=== PATIENT | female | born 1945 | race Caucasian/White ===

== ENCOUNTER 2020-02-27 11:28 | Emergency (ER) | payer MEDICARE, OTHER ==
--- NOTE | 2020-02-27 11:48 | ED Physician Documentation ---
PD HPI NVD - Stated complaint Stated Complaint: N/V - History obtained from History obtained from: Patient - History of Present Illness Timing - onset: How many hours ago (About 2-1/2 hours ago, at 830 this morning, the patient while doing simple activity in the kitchen had an onset of nausea lightheadedness and sweating. Her states she broke out in a cold sweat. There were no focal deficits. She denied chest pain or headache. Symptoms lasted 20 or 30 mins.) Timing - details: Abrupt onset, Still present (She feels improved generally without any chest pain or headache but still nauseated and feeling generally weak. She is seeming forgetful of events from this morning but does not have any focal neuro deficits.) Associated symptoms: Near syncope / syncope. No: Fever, Abdominal pain, Chest pain, Loss of appetite Contributing factors: No: Sick contact, Bad food, Travel, Diabetes Similar symptoms before: Has not had sx before Recently seen: Not recently seen Review of Systems Constitutional: denies: Fever, Chills Nose: denies: Rhinorrhea / runny nose, Congestion Throat: denies: Sore throat Cardiac: reports: Other (feeling of lightheaded abruptly this morning). denies: Chest pain / pressure, Palpitations, Pedal edema, Calf pain Respiratory: denies: Cough GI: reports: Nausea. denies: Abdominal Pain, Vomiting, Diarrhea Neurologic: reports: Generalized weakness, Near syncope. denies: Focal weakness, Numbness, Syncope, Confused (but forgetful of events from this morning.), Altered mental status, Headache PD PAST MEDICAL HISTORY - Past Medical History Cardiovascular: None, Hypertension Respiratory: None Neuro: None Endocrine/Autoimmune: None GI: None - Allergies Allergies/Adverse Reactions: Allergies Allergy/AdvReac Type Severity Reaction Status Date / Time No Known Drug Allergies Allergy Verified 02/27/20 15:13 - Living Situation Living Situation: reports: With spouse/s.o. Living Arrangement: reports: At home - Social History Does the pt smoke?: No Does the pt drink ETOH?: No Does the pt have substance abuse?: No - Family History Family history: reports: CAD, CVA PD ED PE NORMAL - Vitals Vital signs reviewed: Yes - General General: Alert and oriented X 3, No acute distress, Well developed/nourished, Other (Conversant alert and interacts well. 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 No: ST elevation c/w ischemia, ST depression Compare to prior EKG: Old EKG unavailable - Labs Labs: Laboratory Tests 02/27/20 02/27/20 02/27/20 12:04 12:30 12:30 WBC 14.0 H RBC 4.65 Hgb 14.7 Hct 43.4 MCV 93.3 MCH 31.6 H MCHC 33.9 RDW 12.0 Plt Count 163 MPV 10.3 Neut # (Auto) 12.0 H Lymph # (Auto) 1.3 L [place] # (Auto) 0.5 Eos # (Auto) 0.0 Baso # (Auto) 0.0 Absolute Nucleated RBC 0.00 Nucleated RBC % 0.0 ESR Sodium 141 Potassium 3.5 Chloride 99 L Carbon Dioxide 28 Anion Gap 14.0 H BUN 11 Creatinine 0.8 Estimated GFR (MDRD) 70 L Glucose 144 H POC Whole Bld Glucose 146 H Calcium 9.6 Magnesium 2.1 Total Bilirubin 0.8 AST 54 H ALT 24 Alkaline Phosphatase 62 Troponin I High Sens Total Protein 7.9 Albumin 4.8 Globulin 3.1 Albumin/Globulin Ratio 1.5 Lipase 56 H 02/27/20 02/27/20 02/27/20 12:30 12:30 14:04 WBC RBC Hgb Hct MCV MCH MCHC RDW Plt Count MPV Neut # (Auto) Lymph # (Auto) [place] # (Auto) Eos # (Auto) Baso # (Auto) Absolute Nucleated RBC Nucleated RBC % ESR 14 Sodium Potassium Chloride Carbon Dioxide Anion Gap BUN Creatinine Estimated GFR (MDRD) Glucose POC Whole Bld Glucose Calcium Magnesium Total Bilirubin AST ALT Alkaline Phosphatase Troponin I High Sens 68.9 H* 129.2 H* Total Protein Albumin Globulin Albumin/Globulin Ratio Lipase PD MEDICAL DECISION MAKING - ED course Complexity details: reviewed results (Her EKG is without any acute ischemia. Her initial troponin is elevated at 60 and the repeat is almost doubled at 129. Concerning for an acute ACS.), re-evaluated patient (The patient is updated on the findings. She does have a tobacco stemmer in [facility]. The [facility] hospital states a are likely to have beds available after several hours. Given that she does have a tobacco stemmer there, it seems reasonable to try to have disposition to Prov), considered differential (Onset of nausea diaphoresis and lightheadedness even without chest pain would be co ncerning for cardiovascular event. We will get EKG and troponin and blood test. She is forgetful of events from this morning but no focal deficits. This does not sound like cerebrovascular.), d/w patient, d/w internet marketing consultant (Talked with hospitalist at [facility] who accepts transfer the patient for further heart evaluation. Limitation of our facility is no availability of stress testing or echo for at least 3 days.) Departure - Departure Disposition: 02 Transfer Acute Care Hosp Clinical Impression: Near syncope, Elevated troponin, Transient amnesia Condition: Stable
[2020-02-27] MEDS ORDERED: ONDANSETRON 4 MG/2 ML VIAL IVP STA (12:15)
[2020-02-27] MEDS ORDERED: SODIUM CHLORIDE 0.9% 1,000 ML IV STA (12:15)
[2020-02-27 12:45] LABS: BASOPHILS % (AUTO) 0.3 %; EOSINOPHILS % (AUTO) 0.1 %; HGB - HEMOGLOBIN 14.7 g/dL (12.0-16.0); LYMPHOCYTES # (AUTO) 1.3 10^3/uL (1.5-3.5); LYMPHOCYTES % (AUTO) 9.4 %; MEAN CORPUSCULAR HEMOGLOBIN 31.6 pg (27.0-31.0); MEAN CORPUSCULAR HGB CONC 33.9 g/dL (32.0-36.0); MEAN CORPUSCULAR VOLUME 93.3 fL (81.0-99.0); MEAN PLATELET VOLUME 10.3 fL (7.9-10.8); MONOCYTES # (AUTO) 0.5 10^3/uL (0.0-1.0); MONOCYTES % (AUTO) 3.7 %; NEUTROPHILS % (AUTO) 85.6 %; PLT - PLATELET COUNT 163 10^3/uL (130-450); RED BLOOD COUNT 4.65 10^6/uL (4.20-5.40)
--- NOTE | 2020-02-27 12:57 | CT Report ---
PROCEDURE: HEAD WO INDICATIONS: onset memory deficit this morning TECHNIQUE: Noncontrast 4.5 mm thick angled axial sections acquired from the foramen magnum to the vertex. For r adiation dose reduction, the following was used: automated exposure control, adjustment of mA and/or kV according to patient size. COMPARISON: None. FINDINGS: Image quality: Excellent. CSF spaces: Basal cisterns are patent. No extra-axial fluid collections. Ventricles are normal in size and shape. Brain: No midline shift. No intracranial masses or hemorrhage. [place]-white matter interface is norm al. Brain parenchymal volume loss and chronic small vessel ischemic change is seen. Skull and face: Calvarium and visualized facial bones are intact, without suspicious lesions. Sinuses: Visualized sinuses and mastoids are clear. IMPRESSION: Unremarkable intracranial study for age, without an imaging explanation found for the patient's prese nting symptoms. If there is strong clinical concern for a stroke, please consider a dedicated brain MRI for further e valuation (assuming that there is no contraindication to MRI). Reviewed by: Tawanda Givens MD on 02/27/2020 11:56 AM OVIDIO Approved by: Tawanda Givens MD on 02/27/2020 11:56 AM OVIDIO Station ID: [id number]
[2020-02-27 12:58] LABS: ALBUMIN 4.8 g/dL (3.2-5.5); ALBUMIN/GLOBULIN RATIO 1.5 (1.0-2.2); BILIRUBIN,TOTAL 0.8 mg/dL (0.2-1.0); CALCIUM 9.6 mg/dL (8.5-10.3); CREATININE 0.8 mg/dL (0.4-1.0); MAGNESIUM 2.1 mg/dL (1.7-2.8); TOTAL PROTEIN 7.9 g/dL (6.7-8.2)
[2020-02-27] MEDS ORDERED: CLOPIDOGREL 75 MG TABLET PO STA (15:09)
[2020-02-27] MEDS ORDERED: ASPIRIN CHEW 81 MG TABLET PO STA (15:09)
[2020-02-27] MEDS ORDERED: HEPARIN 25,000 UNITS/500 ML PREMIX IV STA (15:11)
[2020-02-27 17:38] VITALS: BP 144/81
== END 2020-02-27 17:45 | disposition short-term general hospital (02) ==
LOC: ED 11:28
DX: R55 Syncope and collapse (principal); G45.4 Transient global amnesia; R79.89 Other specified abnormal findings of blood chemistry; I10 Essential (primary) hypertension
CPT/HCPCS: 36415; 70450; 80053; 83690; 83735; 84484; 85025; 85651; 93005; 96361; 96374; 96375; 96376; 99284; 99285; A9270

== ENCOUNTER 2020-02-27 18:00 | Outpatient (CLI) | payer MEDICARE, OTHER | END 2020-02-27 18:01 | disposition short-term general hospital (02) | LOC: EMS 18:00 | PROVIDERS: ATTEND Surgery | DX: R41.3 Other amnesia (principal); R42 Dizziness and giddiness; R61 Generalized hyperhidrosis; R11.2 Nausea with vomiting, unspecified | CPT/HCPCS: A0425; A0426 ==

== ENCOUNTER 2020-03-15 22:21 | Emergency (ER) | payer MEDICARE, OTHER ==
--- NOTE | 2020-03-15 22:50 | ED Physician Documentation ---
History of Present Illness - Stated complaint Stated Complaint: UPSET STOMACH/SHAKY - Chief complaint Chief Complaint: Abd Pain - History obtained from History obtained from: Patient - History of Present Illness Timing: Enter time (21:00) Pain level max: 0 Pain level now: 0 Improved by: nothing Worsened by: no exacerbating factors - Additonal information Additional information: patient was recently discharged from [facility] after inpatient stay for possible NSTEMI (normal EKG but abnormal high sensitivity troponins in this ED prior to being transferred). Patient says she was told she had a "small heart attack" (per patient), although she is scheduled to have a stress test soon. She says she was also told she had several small strokes, although by her description it sounds like these might have been incidental findings on imaging studies rather than acute/symptomatic. Tonight, approximately 9 PM , patient felt anxious, tremulous, and burning epigastric discomfort although she says this was not summer abdominal pain. She has some difficulty in describing her symptoms to me, but her chief concern was that she felt that some of her symptoms tonight were among those she was told to watch for after being discharged from [place]. Review of Systems Constitutional: reports: Myalgias. denies: Fever, Chills, Fatigue, Sweats Cardiac: reports: Reviewed and negative Respiratory: reports: Reviewed and negative GI: denies: Abdominal Pain (patient says she felt "upset stomach" (per patient), which she can best describe as a mild burning discomfort), Nausea, Vomiting Musculoskeletal: reports: Reviewed and negative Neurologic: denies: Generalized weakness, Focal weakness, Numbness, Difficulty speaking, Near syncope, Confused, Altered mental status, Headache PD PAST MEDICAL HISTORY - Past Medical History Cardiovascular: None, Hypertension Respiratory: None Neuro: None Endocrine/Autoimmune: None GI: None - Past Surgical History 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 - Allergies Allergies/Adverse Reactions: Allergies Allergy/AdvReac Type Severity Reaction Status Date / Time No Known Drug Allergies Allergy Verified 03/15/20 22:25 - Social History Does the pt smoke?: No Smoking Status: Never smoker Does the pt drink ETOH?: No Does the pt have substance abuse?: No - Immunizations Immunizations are current?: Yes - POLST Patient has POLST: No PD ED PE NORMAL - Vitals Vital signs reviewed: Yes - General General: Alert and oriented X 3, No acute distress, Well developed/nourished - HEENT HEENT: Moist mucous membranes - Neck Neck: Supple, no meningeal sign - Cardiac Cardiac: RRR, No murmur, No gallop, No rub - Respiratory Respiratory: No respiratory distress, Clear bilaterally - Abdomen Abdomen: Normal bowel sounds, Soft, Non tender, Non distended - Back Back: No CVA TTP - Derm Derm: Normal color, Warm and dry - Extremities Extremities: No edema - Neuro Neuro: Alert and oriented X 3, laborer shaft sinking 2-12 intact Results - Vitals Vitals: Vital Signs - 24 hr 03/15/20 03/15/20 03/16/20 22:25 23:30 00:19 Temperature 36.5 C 36.6 C Heart Rate 88 75 70 Respiratory 16 15 13 Rate Blood Pressure 152/84 H 124/74 133/88 H O2 Saturation 97 97 96 Oxygen O2 Source Room air - EKG (time done) No standard instances Rate: Rate (enter#) (87) Rhythm: NSR [place]: Normal Intervals: Normal [place] QRS: Normal Ischemia: Normal ST segments - Labs Labs: Laboratory Tests 03/15/20 03/15/20 03/15/20 22:50 22:50 22:50 WBC 6.9 RBC 4.29 Hgb 13.6 Hct 39.6 MCV 92.3 MCH 31.7 H MCHC 34.3 RDW 12.2 Plt Count 238 MPV 9.7 Neut # (Auto) Not Reportable Lymph # (Auto) Not Reportable [place] # (Auto) Not Reportable Eos # (Auto) Not Reportable Baso # (Auto) Not Reportable Absolute Nucleated RBC Not Reportable Total Counted 100 Band Neuts % (Manual) 0 Abnorm Lymph % (Manual) 0 Nucleated RBC % Not Reportable Neutrophils # (Manual) 4.3 Lymphocytes # (Manual) 1.9 Monocytes # (Manual) 0.5 Eosinophils # (Manual) 0.1 Basophils # (Manual) 0.0 Differential Comment MANUAL DIFFERENTIAL Platelet Estimate NORMAL (130-450,000) RBC Morph Micro Appear NORMAL APPEARANCE PT 12.5 INR 1.1 APTT 30.9 Sodium 135 Potassium 3.8 Chloride 103 Carbon Dioxide 23 Anion Gap 9.0 BUN 15 Creatinine 0.6 Estimated GFR (MDRD) 97 Glucose 132 H Calcium 9.1 Total Bilirubin 0.6 AST 46 H ALT 27 Alkaline Phosphatase 62 Troponin I High Sens Total Protein 7.0 Albumin 4.3 Globulin 2.7 Albumin/Globulin Ratio 1.6 Lipase 119 H Urine Color Urine Clarity Urine pH Ur Specific [place] Urine Protein Urine Glucose (UA) Urine Ketones Urine Occult Blood Urine Nitrite Urine Bilirubin Urine Urobilinogen Ur Leukocyte Esterase Ur Microscopic Review Urine Culture Comments 03/15/20 03/15/20 23:23 23:25 WBC RBC Hgb Hct MCV MCH MCHC RDW Plt Count MPV Neut # (Auto) Lymph # (Auto) [place] # (Auto) Eos # (Auto) Baso # (Auto) Absolute Nucleated RBC Total Counted Band Neuts % (Manual) Abnorm Lymph % (Manual) Nucleated RBC % Neutrophils # (Manual) Lymphocytes # (Manual) Monocytes # (Manual) Eosinophils # (Manual) Basophils # (Manual) Differential Comment Platelet Estimate RBC Morph Micro Appear PT INR APTT Sodium Potassium Chloride Carbon Dioxide Anion Gap BUN Creatinine Estimated GFR (MDRD) Glucose Calcium Total Bilirubin AST ALT Alkaline Phosphatase Troponin I High Sens 11.7 Total Protein Albumin Globulin Albumin/Globulin Ratio Lipase Urine Color YELLOW Urine Clarity CLEAR Urine pH 6.0 Ur Specific [place] <=1.005 Urine Protein NEGATIVE Urine Glucose (UA) NEGATIVE Urine Ketones NEGATIVE Urine Occult Blood NEGATIVE Urine Nitrite NEGATIVE Urine Bilirubin NEGATIVE Urine Urobilinogen 0.2 (NORMAL) Ur Leukocyte Esterase NEGATIVE Ur Microscopic Review NOT INDICATED Urine Culture Comments NOT INDICATED PD MEDICAL DECISION MAKING - ED course Complexity details: reviewed results, re-evaluated patient, considered differential, d/w patient Departure - Departure Disposition: 01 Home, Self Care Clinical Impression: Dyspepsia Condition: Good Instructions: ED GERD, ED PUD Vs Gastritis Follow-Up: Serafin Ball MD [Primary Care Provider] - Discharge Date/Time: 03/16/20 00:35
[2020-03-15 23:05] LABS: BASOPHILS % (AUTO) 0.3 %; EOSINOPHILS % (AUTO) 3.5 %; HGB - HEMOGLOBIN 13.6 g/dL (12.0-16.0); LYMPHOCYTES % (AUTO) 27.5 %; MEAN CORPUSCULAR HEMOGLOBIN 31.7 pg (27.0-31.0); MEAN CORPUSCULAR HGB CONC 34.3 g/dL (32.0-36.0); MEAN CORPUSCULAR VOLUME 92.3 fL (81.0-99.0); MEAN PLATELET VOLUME 9.7 fL (7.9-10.8); MONOCYTES % (AUTO) 8.4 %; NEUTROPHILS % (AUTO) 59.9 %; PLT - PLATELET COUNT 238 10^3/uL (130-450); RED BLOOD COUNT 4.29 10^6/uL (4.20-5.40); RED CELL DISTRIBUTION WIDTH 12.2 % (12.0-15.0); WHITE BLOOD COUNT 6.9 x10^3/uL (4.8-10.8)
[2020-03-15 23:07] LABS: ABNORMAL LYMPHS % (MANUAL) 0 %; BAND NEUTROPHILS % (MANUAL) 0 %
[2020-03-15 23:10] LABS: INR 1.1 (0.8-1.2); PT - PROTHROMBIN TIME 12.5 secs (9.9-12.6)
[2020-03-15 23:12] LABS: ALBUMIN 4.3 g/dL (3.2-5.5); ALBUMIN/GLOBULIN RATIO 1.6 (1.0-2.2); BILIRUBIN,TOTAL 0.6 mg/dL (0.2-1.0); CALCIUM 9.1 mg/dL (8.5-10.3); CREATININE 0.6 mg/dL (0.4-1.0)
[2020-03-15 23:17] LABS: PARTIAL THROMBOPLASTIN TIME 30.9 secs (24.9-33.3)
[2020-03-15 23:26] LABS: DIFFERENTIAL COMMENT MANUAL DIFFERENTIAL; EOSINOPHILS # (MANUAL) 0.1 10^3/uL (0-0.7); LYMPHOCYTES # (MANUAL) 1.9 10^3/uL (1.5-3.5); LYMPHOCYTES % (MANUAL) 28 %; MONOCYTES # (MANUAL) 0.5 10^3/uL (0.0-1.0); PLATELET ESTIMATE, MANUAL NORMAL (130-450,000) (NORMAL); RBC MORPHOLOGY (MULTIPLE) NORMAL APPEARANCE (NORMAL)
[2020-03-15 23:49] LABS: BILIRUBIN,URINE NEGATIVE (NEGATIVE); GLUCOSE, URINE (UA) NEGATIVE (NEGATIVE); KETONES,URINE (UA) NEGATIVE (NEGATIVE); LEUKOCYTE ESTERASE, URINE NEGATIVE (NEGATIVE); NITRITE,URINE NEGATIVE (NEGATIVE); OCCULT BLOOD,URINE NEGATIVE (NEGATIVE); PROTEIN,URINE NEGATIVE (NEGATIVE); UROBILINOGEN,URINE 0.2 (NORMAL) E.U./dL (NORMAL)
[2020-03-15 23:51] LABS: CLARITY,URINE CLEAR (CLEAR)
[2020-03-16] MEDS ORDERED: MAG HYDROX/AL HYDROX/SIMETH 30 ML UDC PO STA (00:09)
[2020-03-16 00:21] VITALS: BP 133/88
== END 2020-03-16 00:35 | disposition home or self-care (01) ==
LOC: ED 22:21
DX: R10.13 Epigastric pain (principal)
CPT/HCPCS: 36415; 80053; 81003; 83690; 84484; 85025; 85610; 85730; 93005; 99283; 99284; A9270; 81001; 87086

== ENCOUNTER 2020-04-03 07:18 | Emergency (ER) | payer MEDICARE, OTHER ==
--- NOTE | 2020-04-03 08:10 | ED Physician Documentation ---
PD HPI FOCAL NEURO - Stated complaint Stated Complaint: CHILLS/NAUSEA - Chief complaint Chief Complaint: General - History obtained from History obtained from: Patient, Family - History of Present Illness Timing - onset: How many hours ago (1), Today Timing - duration: Hours (1) Timing - details: Abrupt onset (she states she awoke with feeling of lightheaded and poor memory (she could not remember why she was walking into the bathroom, and not remembering what she was supposed to be doing today or what she did yesterday). Had feeling of lightheaded as well. She took her BP and it was 98 systolic. HR 90s.) Severity of deficit: Moderate Weakness: No: Face, Arm, Leg Numbness: No: Face, Arm, Leg Associated symptoms: Nausea / vomiting (nausea and lightheaded. No headache nor chest pain.). No: Headache, Syncope, Fall, Head injury, Chest pain Contributing factors: negative: Vascular dz, Atrial fibrillation Baseline status: positive: A&OX3, ambulatory, indep Similar symptoms before: No diagnosis (had similar symptoms about a month ago and was transferred to [facility] from our ER for specialist eval due to elevated and rising troponin. She states had cardiac eval with ECHO and pharmacologic stress test. Neuro eval with CT-angio head and MRI brain. Dx "small OK" and possible TIA.) Recently seen: Clinic (Cardiology office and Rx for spironolactone stopped and changed to HCTZ, and was to do 24 hr urine collection on Apr 20.), Emergency Dept, Admitted (a month ago for similar) Review of Systems Constitutional: denies: Fever, Chills Nose: denies: Rhinorrhea / runny nose, Congestion Throat: denies: Sore throat Respiratory: denies: Cough GI: reports: Nausea. denies: Abdominal Pain, Vomiting, Diarrhea : denies: Dysuria Skin: denies: Rash, Lesions Neurologic: reports: Altered mental status (had lightheaded and short term memory deficit, but this has improved enroute/on arrival.). 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 - Present Medications Home Medications: Ambulatory Orders Medication Instructions Recorded Confirmed Albuterol Sulfate [Proair Hfa 1 - 2 puffs INH Q4HR PRN 04/03/20 04/03/20 Inhaler] Ascorbic Acid [Vitamin C] 0 mg PO DAILY 04/03/20 04/03/20 Aspirin [Adult Aspirin Regimen] 81 mg PO DAILY 04/03/20 04/03/20 Atorvastatin Calcium [Lipitor] 80 mg PO DAILY 04/03/20 04/03/20 Calcium Carbonate [Tums (Calcium 1,000 mg PO DAILY 04/03/20 04/03/20 Carbonate 500mg)] Calcium Carbonate/Vitamin D3 2 each PO BID 04/03/20 04/03/20 [Calcium 250-D Tablet] Cholecalciferol (Vitamin D3) 1,000 unit PO DAILY 04/03/20 04/03/20 [Vitamin D3] Cyanocobalamin (Vitamin B-12) 500 mcg PO DAILY 04/03/20 04/03/20 [Vitamin B-12] Flaxseed Oil 1 - 2 mg PO DAILY 04/03/20 04/03/20 Lactobacillus Acidophilus 1 each PO DAILY 04/03/20 04/03/20 [Probiotic Acidophilus] Loratadine [Claritin] 10 mg PO DAILY PRN 04/03/20 04/03/20 Metronidazole [Metrocream] 1 applic TP BID 04/03/20 04/03/20 [place]-3/Dha/Epa/Fish Oil [Fish Oil 1 each PO DAILY 04/03/20 04/03/20 1,000 mg Softgel] guaiFENesin [Guaifenesin] 400 mg PO BID PRN 04/03/20 04/03/20 hydroCHLOROthiazide 25 mg PO DAILY 04/03/20 04/03/20 [Hydrochlorothiazide] - Allergies Allergies/Adverse Reactions: Allergies Allergy/AdvReac Type Severity Reaction Status Date / Time No Known Drug Allergies Allergy Verified 04/03/20 07:37 - Social History Does the pt smoke?: No Smoking Status: Never smoker Does the pt drink ETOH?: No Does the pt have substance abuse?: No - Immunizations Immunizations are current?: Yes - POLST Patient has POLST: No PD ED PE NORMAL - Vitals Vital signs reviewed: Yes - General General: Alert and oriented X 3, No acute distress, Well developed/nourished - HEENT HEENT: Moist mucous membranes, Pharynx benign - Neck Neck: Supple, no meningeal sign, No adenopathy - Cardiac Cardiac: RRR, No murmur - Respiratory Respiratory: Clear bilaterally - Abdomen Abdomen: Soft, Non tender - Derm Derm: Normal color, Warm and dry - Extremities Extremities: No tenderness to palpate, Normal ROM s pain, No edema, No calf tenderness / cord - Neuro Neuro: Alert and oriented X 3, No motor deficit, Normal speech NIHSS - Level of Consciousness Level of consciousness: (0) Alert, Keenly responsive LOC Questions: (0) Answers both Q's correct LOC Commands: (0) Performs both correctly - Gaze Best Gaze: (0) Normal - Visual Visual: (0) No loss - Facial Palsy Facial Palsy: (0) Normal, symmetrical movement - Motor Arms (both separate) Motor Arm (right): (0) No drift Motor Arm (left): (0) No drift - Motor Legs (both separate) Motor Leg (right): (0) No drift Motor Leg (left): (0) No drift - Limb Ataxia Limb Ataxia: (0) Absent - Sensory Sensory: (0) Normal - Best Language Best Language: (0) No aphasia - Dysarthria Dysarthria: (0) Normal - Extinction and Inattention (formally neg Extinction and inattention: (0) No abnormality - Total Score/Results Total Score/Result: 0 Results - Vitals Vitals: Vital Signs - 24 hr 04/03/20 04/03/20 04/03/20 07:20 07:30 08:00 Temperature 36.6 C Heart Rate 89 79 78 Respiratory 14 13 10 L Rate Blood Pressure 137/92 H 124/73 115/79 O2 Saturation 98 99 98 04/03/20 04/03/20 09:30 10:51 Temperature 36.9 C Heart Rate 75 85 Respiratory 18 16 Rate Blood Pressure 120/81 H 109/71 O2 Saturation 97 95 Oxygen O2 Source Room air - Labs Labs: Laboratory Tests 04/03/20 04/03/20 04/03/20 08:31 08:31 08:31 WBC 6.3 RBC 4.45 Hgb 14.1 Hct 41.0 MCV 92.1 MCH 31.7 H MCHC 34.4 RDW 12.0 Plt Count 190 MPV 9.5 Neut # (Auto) 4.3 Lymph # (Auto) 1.3 L [place] # (Auto) 0.5 Eos # (Auto) 0.2 Baso # (Auto) 0.0 Absolute Nucleated RBC 0.00 Nucleated RBC % 0.0 ESR 44 H Sodium 140 Potassium 3.8 Chloride 99 L Carbon Dioxide 32 Anion Gap 9.0 BUN 17 Creatinine 0.8 Estimated GFR (MDRD) 70 L Glucose 118 H Calcium 9.3 Magnesium 2.2 Total Bilirubin 0.7 AST 55 H ALT 28 Alkaline Phosphatase 69 Total Creatine Kinase Troponin I High Sens Total Protein 7.3 Albumin 4.3 Globulin 3.0 Albumin/Globulin Ratio 1.4 Lipase 67 H 04/03/20 04/03/20 04/03/20 08:31 09:35 09:35 WBC RBC Hgb Hct MCV MCH MCHC RDW Plt Count MPV Neut # (Auto) Lymph # (Auto) [place] # (Auto) Eos # (Auto) Baso # (Auto) Absolute Nucleated RBC Nucleated RBC % ESR Sodium Potassium Chloride Carbon Dioxide Anion Gap BUN Creatinine Estimated GFR (MDRD) Glucose Calcium Magnesium Total Bilirubin AST ALT Alkaline Phosphatase Total Creatine Kinase 82 Troponin I High Sens 36.9 H* 34.4 H* Total Protein Albumin Globulin Albumin/Globulin Ratio Lipase PD MEDICAL DECISION MAKING - ED course Complexity details: reviewed results (normal labs with slightly Trop bump, and repeat did not increase. ), re-evaluated patient (still feeling okay. ), considered differential (her BP was low at time of symptoms, so I think it was low flow issue to brain and not focal ischemia. Jef in lieu of recent workup at [facility] for similar symptoms. Had BP med changed recently and on HCTZ the past week or so. ), d/w patient Departure - Departure Disposition: 01 Home, Self Care Clinical Impression: Acute memory impairment, Transient hypotension Condition: Stable Record reviewed to determine appropriate education?: Yes Follow-Up: Serafin Ball MD [Primary Care Provider] - Comments: I think your symptoms relate to your blood pressure being low and not adequate blood flow/perfusion to the brain. Regular hydration and foods. I would hold off on your diuretic blood pressure medicine for the next several days. Contact your kidney specialist and see if he intended you to start it already or waiting until after your urine collection test at the end of the month. See how your blood pressure is doing over the next several days and if it is holding normal or slightly high, then you could resume the diuretic at half dose instead. If it is normal or slightly low, then continue off of it until you see your primary care. Discharge Date/Time: 04/03/20 11:01
[2020-04-03 08:37] LABS: BASOPHILS % (AUTO) 0.2 %; EOSINOPHILS # (AUTO) 0.2 10^3/uL (0.0-0.7); EOSINOPHILS % (AUTO) 3.3 %; HGB - HEMOGLOBIN 14.1 g/dL (12.0-16.0); LYMPHOCYTES # (AUTO) 1.3 10^3/uL (1.5-3.5); LYMPHOCYTES % (AUTO) 20.2 %; MEAN CORPUSCULAR HEMOGLOBIN 31.7 pg (27.0-31.0); MEAN CORPUSCULAR HGB CONC 34.4 g/dL (32.0-36.0); MEAN CORPUSCULAR VOLUME 92.1 fL (81.0-99.0); MEAN PLATELET VOLUME 9.5 fL (7.9-10.8); MONOCYTES # (AUTO) 0.5 10^3/uL (0.0-1.0); MONOCYTES % (AUTO) 8.2 %; NEUTROPHILS # (AUTO) 4.3 10^3/uL (1.5-6.6); NEUTROPHILS % (AUTO) 67.6 %; PLT - PLATELET COUNT 190 10^3/uL (130-450); RED BLOOD COUNT 4.45 10^6/uL (4.20-5.40); WHITE BLOOD COUNT 6.3 x10^3/uL (4.8-10.8)
[2020-04-03 08:51] LABS: ALBUMIN 4.3 g/dL (3.2-5.5); ALBUMIN/GLOBULIN RATIO 1.4 (1.0-2.2); BILIRUBIN,TOTAL 0.7 mg/dL (0.2-1.0); CALCIUM 9.3 mg/dL (8.5-10.3); CREATININE 0.8 mg/dL (0.4-1.0); MAGNESIUM 2.2 mg/dL (1.7-2.8); TOTAL PROTEIN 7.3 g/dL (6.7-8.2)
[2020-04-03 10:52] VITALS: BP 109/71
== END 2020-04-03 11:01 | disposition home or self-care (01) ==
LOC: ED 07:18
DX: I95.9 Hypotension, unspecified (principal); R41.3 Other amnesia; R42 Dizziness and giddiness; I10 Essential (primary) hypertension; Z79.82 Long term (current) use of aspirin
CPT/HCPCS: 36415; 80053; 82550; 83690; 83735; 84484; 85025; 85651; 93005; 99284

== ENCOUNTER 2021-02-09 16:46 | Outpatient (CLI) | payer MEDICARE, OTHER | END 2021-02-09 16:47 | disposition home or self-care (01) | LOC: COV 16:46 | PROVIDERS: ATTEND Family Medicine | DX: Z20.822 Contact with and (suspected) exposure to COVID-19 (principal) ==

== ENCOUNTER 2021-03-10 22:33 | Emergency (ER) | payer MEDICARE, OTHER ==
--- NOTE | 2021-03-10 23:16 | ED Physician Documentation ---
PD HPI ABD PAIN - Stated complaint Stated Complaint: NAUSEA, CHILLS, ABD CRAMPS - Chief complaint Chief Complaint: Abd Pain - History obtained from History obtained from: Patient - History of Present Illness Timing - onset: Today (tonight) Timing - details: Abrupt onset, Now resolved, Waxing and waning Pain level max: 4 Pain level now: 0 Quality: Cramping Location: All over / everywhere Associated symptoms: Nausea. No: Fever, Vomiting, Diarrhea, Constipation - Additional information Additional information: episode of nausea without vomiting associated with abdominal cramping earlier tonight at home. 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 - Present Medications Home Medications: Ambulatory Orders Medication Instructions Recorded Confirmed Albuterol Sulfate [Proair Hfa 1 - 2 puffs INH Q4HR PRN 04/03/20 03/10/21 Inhaler] Ascorbic Acid [Vitamin C] 250 mg PO DAILY 04/03/20 03/10/21 Atorvastatin Calcium [Lipitor] 80 mg PO DAILY 04/03/20 03/10/21 Calcium Carbonate [Tums (Calcium 1,000 mg PO DAILY 04/03/20 03/10/21 Carbonate 500mg)] Calcium Carbonate/Vitamin D3 2 each PO BID 04/03/20 03/10/21 [Calcium 250-D Tablet] Cholecalciferol (Vitamin D3) 2,000 unit PO DAILY 04/03/20 03/10/21 [Vitamin D3] Cyanocobalamin (Vitamin B-12) 500 mcg PO DAILY 04/03/20 03/10/21 [Vitamin B-12] Lactobacillus Acidophilus 1 each PO DAILY 04/03/20 03/10/21 [Probiotic Acidophilus] Loratadine [Claritin] 10 mg PO DAILY PRN 04/03/20 03/10/21 guaiFENesin [Guaifenesin] 400 mg PO BID PRN 04/03/20 03/10/21 Rivaroxaban [Xarelto] 20 mg PO DAILY PM 03/10/21 03/10/21 - Allergies Allergies/Adverse Reactions: Allergies Allergy/AdvReac Type Severity Reaction Status Date / Time No Known Drug Allergies Allergy Verified 03/10/21 22:42 - Social History Does the pt smoke?: No Smoking Status: Never smoker Does the pt drink ETOH?: No Does the pt have substance abuse?: No - Immunizations Immunizations are current?: Yes - POLST Patient has POLST: No PD ED PE NORMAL - Vitals Vital signs reviewed: Yes - General General: Alert and oriented X 3, No acute distress, Well developed/nourished - Cardiac Cardiac: RRR, No murmur - Respiratory Respiratory: No respiratory distress, Clear bilaterally - Abdomen Abdomen: Normal bowel sounds, Soft, Non tender, Non distended Results - Vitals Vitals: Oxygen O2 Source Room air - Labs Labs: Laboratory Tests 03/10/21 03/10/21 23:45 23:45 WBC 9.4 RBC 4.45 Hgb 13.5 Hct 41.4 MCV 93.0 MCH 30.3 MCHC 32.6 RDW 12.7 Plt Count 179 MPV 9.8 Neut # (Auto) 8.1 H Lymph # (Auto) 0.7 L [place] # (Auto) 0.6 Eos # (Auto) 0.0 Baso # (Auto) 0.0 Absolute Nucleated RBC 0.00 Nucleated RBC % 0.0 Sodium 139 Potassium 3.9 Chloride 102 Carbon Dioxide 24 Anion Gap 13.0 BUN 18 Creatinine 0.7 Estimated GFR (MDRD) 81 L Glucose 138 H Calcium 9.1 Total Bilirubin 0.6 AST 80 H ALT 62 H Alkaline Phosphatase 69 Total Protein 7.1 Albumin 4.4 Globulin 2.7 Albumin/Globulin Ratio 1.6 Lipase 65 H - Rads (name of study) acute abd. series xrays Radiology: Prelim report reviewed, See rad report PD MEDICAL DECISION MAKING - ED course Complexity details: reviewed results, re-evaluated patient, considered marbin nunes, d/w patient ED course: nontender abdominal exam and symptoms have resolved by the time of this ED encounter. mildly elevated transaminases; patient says these have frequently been elevated, although ALT is previously normal on [facility] previous results. mildly elevated lipase noted as well. results d/w patient, given return precautions Departure - Departure Disposition: 01 Home, Self Care Clinical Impression: Abdominal pain Qualifiers: Abdominal location: generalized Qualified Code(s): R10.84 - Generalized abdominal pain Condition: Good Instructions: ED Abdominal Pain Unkn Cause Follow-Up: Serafin Ball MD [Primary Care Provider] - Discharge Date/Time: 03/11/21 03:20
[2021-03-10] MEDS ORDERED: ONDANSETRON ODT 4 MG TABLET TL STA (23:32)
[2021-03-10 23:53] LABS: BASOPHILS % (AUTO) 0.1 %; EOSINOPHILS % (AUTO) 0.3 %; HCT - HEMATOCRIT 41.4 % (37.0-47.0); HGB - HEMOGLOBIN 13.5 g/dL (12.0-16.0); LYMPHOCYTES # (AUTO) 0.7 10^3/uL (1.5-3.5); LYMPHOCYTES % (AUTO) 7.9 %; MEAN CORPUSCULAR HEMOGLOBIN 30.3 pg (27.0-31.0); MEAN CORPUSCULAR HGB CONC 32.6 g/dL (32.0-36.0); MEAN PLATELET VOLUME 9.8 fL (7.9-10.8); MONOCYTES # (AUTO) 0.6 10^3/uL (0.0-1.0); NEUTROPHILS # (AUTO) 8.1 10^3/uL (1.5-6.6); NEUTROPHILS % (AUTO) 85.5 %; PLT - PLATELET COUNT 179 10^3/uL (130-450); RED BLOOD COUNT 4.45 10^6/uL (4.20-5.40); RED CELL DISTRIBUTION WIDTH 12.7 % (12.0-15.0); WHITE BLOOD COUNT 9.4 x10^3/uL (4.8-10.8)
[2021-03-11 00:04] LABS: ALBUMIN 4.4 g/dL (3.2-5.5); ALBUMIN/GLOBULIN RATIO 1.6 (1.0-2.2); BILIRUBIN,TOTAL 0.6 mg/dL (0.2-1.0); CALCIUM 9.1 mg/dL (8.5-10.3); CREATININE 0.7 mg/dL (0.4-1.0); POTASSIUM 3.9 mmol/L (3.5-5.0); TOTAL PROTEIN 7.1 g/dL (6.7-8.2)
[2021-03-11 03:19] VITALS: BP 107/67
--- NOTE | 2021-03-11 13:57 | XRAY Report ---
PROCEDURE: Abdomen Acute INDICATIONS: abdominal cramping, nausea TECHNIQUE: One view chest and two views of the abdomen were acquired. COMPARISON: None. FINDINGS: Surgical changes and devices: None. Chest: Lungs are clear. Heart size is normal. No pleural effusions. No pneumoperitoneum. Abdomen: Mildly dilated air-filled loops of large bowel is seen in the right and central abdomen. The re is a moderate amount of stool in the left colon. No significantly dilated loops of small bowel are identified. No suspicious calcifications. Visualized solid organ contours appear normal. Bones: No suspicious bony lesions. Degenerative changes are seen in the included spine. IMPRESSION: Nonspecific nonobstructive bowel gas pattern with mildly dilated air-filled loops of lar ge bowel in the right abdomen and moderate stool within the left colon. No pneumoperitoneum. Preliminary findings were discussed with the emergency department physician, Dr. Patiño, on the night the study was performed, and this report is being submitted later secondary to system downtime. Reviewed by: Kirt Albright MD on 03/11/2021 1:56 PM PDT Approved by: Kirt Albright MD on 03/11/2021 1:56 PM PDT Station ID: [id number]
== END 2021-03-11 03:20 | disposition home or self-care (01) ==
LOC: ED 22:33
DX: R10.84 Generalized abdominal pain (principal)
CPT/HCPCS: 36415; 74022; 80053; 83690; 85025; 99283; 99284; Q0162

== ENCOUNTER 2022-10-02 16:30 | Emergency (ER) | payer MEDICARE, OTHER ==
[2022-10-02 16:38] VITALS: BP 143/84
[2022-10-02] MEDS ORDERED: TRANEXAMIC ACID 1,000 MG/10 ML VIAL NAS STA (16:53)
--- NOTE | 2022-10-02 16:56 | ED Physician Documentation ---
History of Present Illness - Stated complaint Stated Complaint: BLOODY NOSE - Chief complaint Chief Complaint: Heent - History obtained from History obtained from: Patient - History of Present Illness Timing: Today Pain level max: 0 Pain level now: 0 - Additonal information Additional information: 76-year-old female presents to the emergency department stating that she had a right-sided nosebleed earlier today. This is now resolved. Patient is on Pradaxa at home. She states that she has had several nosebleeds over the past few weeks. She was told to use Aquaphor inside her nose as well as saline nasal sprays, she has not been doing this. No lightheadedness or dizziness. No dyspnea. No chest pain. Nothing seems to make it better or worse. She has an appointment with ENT next week. 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 - Present Medications Home Medications: Ambulatory Orders Medication Instructions Recorded Confirmed Albuterol Sulfate [Proair Hfa 1 - 2 puffs INH Q4HR PRN 04/03/20 03/10/21 Inhaler] Ascorbic Acid [Vitamin C] 250 mg PO DAILY 04/03/20 03/10/21 Atorvastatin Calcium [Lipitor] 80 mg PO DAILY 04/03/20 03/10/21 Calcium Carbonate [Tums (Calcium 1,000 mg PO DAILY 04/03/20 03/10/21 Carbonate 500mg)] Calcium Carbonate/Vitamin D3 2 each PO BID 04/03/20 03/10/21 [Calcium 250-D Tablet] Cholecalciferol (Vitamin D3) 2,000 unit PO DAILY 04/03/20 03/10/21 [Vitamin D3] Cyanocobalamin (Vitamin B-12) 500 mcg PO DAILY 04/03/20 03/10/21 [Vitamin B-12] Lactobacillus Acidophilus 1 each PO DAILY 04/03/20 03/10/21 [Probiotic Acidophilus] Loratadine [Claritin] 10 mg PO DAILY PRN 04/03/20 03/10/21 guaiFENesin [Guaifenesin] 400 mg PO BID PRN 04/03/20 03/10/21 Rivaroxaban [Xarelto] 20 mg PO DAILY PM 03/10/21 03/10/21 - Allergies Allergies/Adverse Reactions: Allergies Allergy/AdvReac Type Severity Reaction Status Date / Time No Known Drug Allergies Allergy Verified 10/02/22 16:38 - Social History Does the pt smoke?: No Smoking Status: Never smoker Does the pt drink ETOH?: No Does the pt have substance abuse?: No - Immunizations Immunizations are current?: Yes - POLST Patient has POLST: No PD ED PE NORMAL - Vitals Vital signs reviewed: Yes - General General: Alert and oriented X 3, No acute distress - HEENT HEENT: PERRL, Moist mucous membranes, Other (Dried blood in the right nare. No further bleeding.) - Neck Neck: Supple, no meningeal sign - Derm Derm: Warm and dry - Neuro Neuro: Alert and oriented X 3 - Psych Psych: Normal mood, Normal affect Results - Vitals Vitals: Vital Signs - 24 hr 10/02/22 16:36 Temperature 36.8 C Heart Rate 93 Respiratory 16 Rate Blood Pressure 143/84 H O2 Saturation 94 Oxygen O2 Source Room air PD Medical Decision Making - ED course Complexity details: considered differential, d/w patient ED course: 76-year-old female on Pradaxa had a right-sided nosebleed earlier today. No bleeding here. No indication for lab work. TXA was applied intranasally. She has an appointment with ENT next week. Recommend that she continue the Aquaphor and saline rinses. Patient counseled regarding signs and symptoms for which I believe and urgent re-evaluation would be necessary. Patient with good understanding of and agreement to plan and is comfortable going home at this time This document was made in part using voice recognition software. While efforts are made to proofread this document, sound alike and grammatical errors may occur. Departure - Departure Disposition: 01 Home, Self Care Clinical Impression: Epistaxis Condition: Good Instructions: ED Nosebleed Follow-Up: RIC MARQUEZ MD [Primary Care Provider] - Within 1 week Comments: Please follow up with your doctor for further care. I would continue the Aquaphor in the nose as well. Please do not place anything in your nose. Please follow-up with ENT for further care. Discharge Date/Time: 10/02/22 17:37
== END 2022-10-02 17:37 | disposition home or self-care (01) ==
LOC: ED 16:30
DX: R04.0 Epistaxis (principal); I10 Essential (primary) hypertension; I25.2 Old myocardial infarction; Z79.899 Other long term (current) drug therapy; Z79.01 Long term (current) use of anticoagulants
CPT/HCPCS: 99282; 99283

== ENCOUNTER 2023-03-28 12:16 | Emergency (ER) | payer MEDICARE, OTHER ==
[2023-03-28 12:31] VITALS: O2SAT 98
[2023-03-28] MEDS ORDERED: CHERRY SYRUP 10 ML UDC PO ONE (13:12)
[2023-03-28] MEDS ORDERED: DEXAMETHASONE 10 MG/ML VIAL PO STA (13:12)
[2023-03-28] MEDS ORDERED: methocarbamoL 500 MG TABLET PO STA (13:12)
[2023-03-28] MEDS ORDERED: HYDROcod/ACETAM 5/325 MG TABLET PO STA (13:12)
--- NOTE | 2023-03-28 13:14 | ED Physician Documentation ---
History of Present Illness - Stated complaint Stated Complaint: NECK/SHOULDER - Chief complaint Chief Complaint: Ext Problem - History obtained from History obtained from: Patient - History of Present Illness Pain level max: 7 Pain level now: 7 - Additonal information Additional information: 77-year-old female presents to the emergency department stating that she has had left neck pain that radiates to the left shoulder and left arm. This been ongoing for several days. No chest pain. No shortness of breath. No change with exertion. Feels sharp. She states she did have a knot in her back, but this was able to be massaged out. She states she is taking Motrin without relief. Contacted her doctor who told her to come to the emergency department. Review of Systems Constitutional: denies: Fever, Chills Nose: denies: Rhinorrhea / runny nose, Congestion Throat: denies: Sore throat Cardiac: denies: Chest pain / pressure, Palpitations, Calf pain Respiratory: denies: Cough GI: denies: Nausea, Vomiting, Diarrhea Skin: denies: Rash Neurologic: denies: Focal weakness, Numbness, Headache PD PAST MEDICAL HISTORY - Past Medical History Cardiovascular: None, Hypertension, [place] Respiratory: None Neuro: None Endocrine/Autoimmune: None GI: None - Past Surgical History Past Surgical History: Yes /ADVANCED SOLUTIONS ARCHITECT: Tubal ligation - Present Medications Home Medications: Ambulatory Orders Medication Instructions Recorded Confirmed Albuterol Sulfate [Proair Hfa 1 - 2 puffs INH Q4HR PRN 04/03/20 03/28/23 Inhaler] Ascorbic Acid [Vitamin C] 250 mg PO DAILY 04/03/20 03/28/23 Calcium Carbonate/Vitamin D3 2 each PO BID 04/03/20 03/28/23 [Calcium 250-D Tablet] Cholecalciferol (Vitamin D3) 2,000 unit PO DAILY 04/03/20 03/28/23 [Vitamin D3] Cyanocobalamin (Vitamin B-12) 500 mcg PO DAILY 04/03/20 03/28/23 [Vitamin B-12] Lactobacillus Acidophilus 1 each PO DAILY 04/03/20 03/28/23 [Probiotic Acidophilus] Loratadine [Claritin] 10 mg PO DAILY PRN 04/03/20 03/28/23 Rivaroxaban [Xarelto] 20 mg PO DAILY PM 03/10/21 03/28/23 HYDROcod/ACETAM 5/325 [[place] 5/325] 1 - 2 ea PO Q6H PRN #14 tablet 03/28/23 Mirtazapine 45 mg PO HS 03/28/23 03/28/23 Rosuvastatin Calcium [Crestor] 5 mg PO DAILY 03/28/23 03/28/23 busPIRone [Buspar] 5 mg PO BID 03/28/23 03/28/23 hydroCHLOROthiazide [Hydrodiuril] 12.5 mg PO DAILY 03/28/23 03/28/23 methocarbamoL [Robaxin] 500 mg PO Q6H PRN #20 tablet 03/28/23 methylPREDNISolone [Medrol] 4 mg PO DAILY #1 tab 03/28/23 - Allergies Allergies/Adverse Reactions: Allergies Allergy/AdvReac Type Severity Reaction Status Date / Time No Known Drug Allergies Allergy Verified 03/28/23 12:29 - Social History Does the pt smoke?: No Smoking Status: Never smoker Does the pt drink ETOH?: No Does the pt have substance abuse?: No - Immunizations Immunizations are current?: Yes - POLST Patient has POLST: No PD ED PE NORMAL - Vitals Vital signs reviewed: Yes - General General: Alert and oriented X 3, No acute distress - HEENT HEENT: PERRL, Moist mucous membranes, Pharynx benign - Neck Neck: Supple, no meningeal sign, No bony TTP, No JVD, No bruit, Other (Paracervical spinal spasm, mainly left-sided, trapezial ridge mild tenderness. Neurovascular intact. Full range of motion of the shoulder without pain. 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 Relevant findings are: Rate: Rate (enter#) (79) Rhythm: NSR [place]: Normal Intervals: Normal [place] QRS: Normal Ischemia: Normal ST segments PD Medical Decision Making - ED course Complexity details: reviewed results, considered differential, d/w patient, d/w family ED course: 77-year-old female with what appears to be cervical radiculopathy. We will place on pain medication, steroids and muscle relaxants for home. We will have her follow-up closely with her PCP for further care. No acute findings on EKG. No chest pain, no shortness of breath, no evidence of angina or ACS. No evidence of PE. No abdominal pain. No back pain. Patient counseled regarding signs and symptoms for which I believe and urgent re-evaluation would be necessary. Patient with good understanding of and agreement to plan and is comfortable going home at this time This document was made in part using voice recognition software. While efforts are made to proofread this document, sound alike and grammatical errors may occur. Departure - Departure Disposition: Home, Self Care Clinical Impression: Cervical radiculopathy Condition: Good Instructions: ED Cervical Radiculopathy Follow-Up: your,doctor in 1 week [Other] Prescriptions: methylPREDNISolone [Medrol] 4 mg PO DAILY #1 tab HYDROcod/ACETAM 5/325 [[place] 5/325] 1 - 2 ea PO Q6H PRN #14 tablet PRN Reason: Pain methocarbamoL [Robaxin] 500 mg PO Q6H PRN #20 tablet PRN Reason: muscle spasm Comments: Your prescriptions were sent to [facility] in [place]. Please use the medications as prescribed. Please follow-up with your doctor for further care. Please return if you worsen. This should improve over the next several days. I am prescribing a short course of narcotic pain medication for you. These are potentially dangerous and addictive medications that should be used carefully. These medications may constipate you. Take an [id number] stool softener (docusate) twice daily with plenty of water while taking these medications. If you go 24 hours without a bowel movement, take [id number] miralax, per package instructions. Do not drink or drive while taking these medications. If you received narcotic or sedating medications while in the emergency department, do not drive for 24 hours. Store this medication in a safe, secure place and out of reach of children. It is a violation of federal law to give or sell this medication to another person or to use in a manner other than prescribed. The ED will not refill narcotic prescriptions, including prescriptions lost or stolen. To dispose of unwanted medications: 1. [facility] [address] in [place] has a medication drop box. They accept prescription medications (in pill form) Saturday through Saturday 9:00 a.m. to 5:00 p.m. 2. [facility] accepts prescription medications (in pill form only) for disposal year round. Call for more information. 3. Contact the [facility] for the next [facility] sponsored prescription drug collection event. , [phone], or [phone]; Forms: PCP List Discharge Date/Time: 03/28/23 13:42
[2023-03-28 13:46] VITALS: BP 175/98
== END 2023-03-28 13:42 | disposition home or self-care (01) ==
LOC: ED 12:16
DX: M54.12 Radiculopathy, cervical region (principal)
CPT/HCPCS: 93005; 99283; 99284; A9270